=== PATIENT | male | born 1950 | race Caucasian/White ===

== ENCOUNTER 2020-05-06 01:34 | Emergency (ER) | payer MEDICARE, OTHER ==
[2014-08-21 01:05] VITALS: BP 152/94
[~2020-05-06] VITALS: Ht 188 cm; Wt 100.0 kg
[~2020-05-06 01:34] MED LIST: HYDR-2155 PO
--- NOTE | 2020-05-06 02:26 | PHYS DOC ---
Past History Past Medical History: High Cholesterol, Heart Disease, Other Past Surgical History: Other Alcohol Use: Occasionally Drug Use: None Adult General Chief Complaint Chief Complaint: FLANK PAIN HPI HPI Patient is a 69-year-old male with a past medical history significant for CAD and hypercholesterolemia who presents to the emergency department with a chief complaint of right-sided flank pain. States this morning he was shoveling snow and was not experiencing any pain. Stated that several hours later he began to have pain in his right lower flank which slightly radiates down right lower abdomen, sharp in nature, 6 out of 10 and relatively constant. States he is never really had anything like this before states he does have mild chronic low back pain but this feels different. Denies any recent traumas, illnesses, fevers, chest pain, shortness of breath, abdominal pain, nausea, vomiting, dysuria, hematuria or blood in the stool. Denies any numbness /weakness/tingling. Denies any urinary retention or incontinence. Denies any history of cigarette smoking. Denies any recent travel or known ill contacts. States he is otherwise eating and drinking normally. States he is making urine and stool normally for him. Review of Systems Review of Systems Review of systems otherwise unremarkable except for noted in HPI Allergies Allergies Allergies Coded Allergies Type Severity Reaction Last Updated Verified No Known Drug Allergies 08/21/14 No Physical Exam Physical Exam Constitutional: Well developed, well nourished, no acute distress, non-toxic appearance. [] HENT: Normocephalic, atraumatic, oropharynx moist, no oral exudates Eyes: conjunctiva normal, no discharge. [] Neck: Normal range of motion, no tenderness Cardiovascular:Heart rate regular rhythm, no murmur [] Lungs & Thorax: Bilateral breath sounds clear to auscultation [] Abdomen: Bowel sounds normal, soft, patient with tenderness on palpation of the right flank/CVA, no masses, no pulsatile masses, no guarding or rebound, no McBurney's, no Pratt's. [] Skin: Warm, dry, no erythema, no rash. [] Back: No tenderness[] Extremities: No tenderness, no cyanosis, no clubbing, ROM intact, no edema. [] Neurologic: Alert and oriented X 3, normal motor function, normal sensory function, no focal deficits noted. [] Psychologic: Affect normal, judgement normal, mood normal. [] Current Patient Data Vital Signs Vital Signs Date Time Temp Pulse Resp B/P (MAP) Pulse Ox O2 Delivery O2 Flow Rate FiO2 05/06/20 01:57 60 18 119/73 (88) 97 Room Air 05/06/20 01:34 97.9 EKG EKG EKG with a rate of 64, QRS of 86, QTC of 392, no STEMI [] Radiology/Procedures Radiology/Procedures []IMPRESSION: 1. Urinary bladder is mostly decompressed. The wall is thickened and ill- defined. Considerations include cystitis or chronic bladder outlet obstruction. Suggest correlation with urinalysis. 2. No obstructive uropathy. Electronically signed by: Rico Riley MD (05/06/2020 2:52 AM) [facility] IMPRESSION: No acute cardiopulmonary process. Electronically signed by: Rico Riley MD (05/06/2020 2:56 AM) [facility] Heart Score Risk Factors: Risk Factors: DM, Current or recent (<one month) smoker, HTN, HLP, family history of CAD, obesity. Risk Scores: Risk Factors: DM, Current or recent (<one month) smoker, HTN, HLP, family history of CAD, obesity. Course & Med Decision Making Course & Med Decision Making Patient is a 69-year-old male who presents with a chief complaint of right-sided flank pain for about a half a day Vital signs not concerning. Physical exam noted above. Patient given Tylenol and Percocet for pain control. No need for nausea control. EKG not concerning. Troponin normal. Imaging remarkable for thickened urinary bladder wall suggestive of cystitis or chronic bladder outlet obstruction, however prostate is normal size and patient is urinating. Laboratory analysis notable for elevated creatinine to 1.5. Urinalysis completely normal. On reassessment patient stated that fluid and pain medicine did help. Offered patient admission for continued fluid hydration for mildly elevated creatinine. Patient stated that he would just go home make sure to drink plenty of fluids and follow-up with his doctor for same today. Advised to call his primary care physician first thing in the morning to update on ED visit, mildly elevated creatinine and request a follow-up appointment for repeat urinalysis and labs. Discussed differential diagnosis with patient i ncluding but not limited to some type of obstruction not seen that need to be evaluated by urologist or possibly a small kidney stone that passed causing him discomfort. Advised that he needed to do this as soon as possible to avoid any further possible kidney injury. Advised to come back to the emergency department immediately with any new or concerning symptoms. [] Flaquita Disclaimer Flaquita Disclaimer This electronic medical record was generated, in whole or in part, using a voice recognition dictation system. Departure Departure: Impression: Primary Impression: Flank pain Additional Impression: Elevated serum creatinine Disposition: HOME SELF CARE/HOMELESS Referrals: SHANNA EVANS (PCP) Patient Instructions: Acute Kidney Injury Additional Instructions: Please read all the attached information. Please make sure to stay well- hydrated and eat normally. Please refrain from taking any aspirin/ibuprofen/Motrin or Advil and try to only take Tylenol and your prescription pain medicine as needed for pain control. Please do not exceed 30 00 mg of Tylenol daily. He can also use ice as needed. The most important thing is to call your primary care physician first thing this morning to discuss your ED visit your mildly elevated creatinine at 1.5 and your urinary bladder with thickened fofana. However your prostate was normal in size on your CT. Discussed the need for further treatment, evaluation or possibly outpatient follow-up with urology. Please come back to the emergency department immediately with any new or concerning symptoms. Scripts Oxycodone HCl/Acetaminophen (Percocet 5-325 mg Tablet) 1 Each Tablet 1 TAB PO PRN BID PRN for flank pain MDD 2 Tablet(s) for 5 Days, #10 TAB 0 Refills Prov: TERELL BLACK MD 05/06/20 Problem Qualifiers TERELL BLACK MD May 06, 2020 02:26
[2020-05-06 02:41] LABS: BASO # 0.1 x10^3/uL (0.0-0.2); BASO % 1 % (0-3); EOS # 0.2 x10^3/uL (0.0-0.7); EOS % 2 % (0-3); HEMOGLOBIN 17.1 g/dL (13.0-17.5); LYMPH # 2.7 x10^3/uL (1.0-4.8); LYMPH % 24 % (24-48); MEAN CORPUSCULAR HEMOGLOBIN 31 pg (25-35); MEAN CORPUSCULAR HGB CONC 34 g/dL (31-37); MEAN CORPUSCULAR VOLUME 91 fL (79-100); MONO # 0.9 x10^3/uL (0.0-1.1); MONO % 8 % (0-9); NEUT # 7.2 x10^3uL (1.8-7.7); NEUT % 65 % (31-73); PLATELET COUNT 182 x10^3/uL (140-400); RED BLOOD COUNT 5.52 x10^6/uL (4.30-5.70); RED CELL DISTRIBUTION WIDTH 12.8 % (11.5-14.5); WHITE BLOOD COUNT 11.1 x10^3/uL (4.0-11.0)
--- NOTE | 2020-05-06 02:52 | EKG ---
[address] [address] Test Date: 2020-05-06 Test Time: 02:45:08 Pat Name: LORENZO PAREDES Department: Room: Gender: M Sales Support Consultant: Kvng : [id number] Requested By: TERELL BLACK Order Number: [id number] Reading MD: Measurements Intervals [place] Rate: 64 P: 0 AL: 164 QRS: 28 QRSD: 86 T: 33 QT: 380 QTc: 392 Interpretive Statements SINUS RHYTHM NORMAL ECG RI6.02 No previous ECG available for comparison
[2020-05-06 02:53] LABS: CALCIUM 9.1 mg/dL (8.5-10.1); CREATININE 1.5 mg/dL (0.7-1.3); GFR 46.5; POTASSIUM 4.3 mmol/L (3.5-5.1)
--- NOTE | 2020-05-06 02:55 | RAD ---
PQRS Compliance Statement: One or more of the following individualized dose reduction techniques were utilized for this examinat ion: 1. Automated exposure control 2. Adjustment of the mA and/or kV according to patient size 3. Use of iterative reconstruction technique CT ABDOMEN+PELVIS WO Clinical Indication: Reason: right sided flank pain Comparison: None. Technique: Helical CT imaging of the abdomen and pelvis is performed without IV or oral contrast. Findings: Evaluation of solid organs and bowel is limited without oral and IV contrast, decreasing sensitivity for detection of pathology. Lung bases are clear. There is respiratory motion artifact. The cardiac size is normal. The liver, gallbladder, spleen, pancreas, adrenal glands, and abdominal aorta are normal. There is no renal, ureteral, or bladder calculus. There is no hydronephrosis. No obvious abnormality of the stomach. There is no dilated small bowel. The appendix is normal. There is no colon wall thickening. Scattered stool in the colon. No abdominal adenopathy or free fluid. The urinary bladder is mostly decompressed, the wall is thickened and ill-defined. Prostate and semin al vesicles are normal. No pelvic free fluid. There is disc space narrowing and endplate spurring and reactive sclerosis of L5/S1. Schmorl's node s uperior endplate of L1 and inferior endplate of L2. IMPRESSION: 1. Urinary bladder is mostly decompressed. The wall is thickened and ill-defined. Considerations inc lude cystitis or chronic bladder outlet obstruction. Suggest correlation with urinalysis. 2. No obstructive uropathy. Electronically signed by: Rico Riley MD (05/06/2020 2:52 AM) [facility]
--- NOTE | 2020-05-06 02:58 | RAD ---
XR CHEST 2V History: Reason: right sided rib/flank pain / Comparison: Two-view chest, August 10, 2011. Findings: The cardiomediastinal silhouette is normal. Pulmonary vasculature is normal. The lungs are clear. No pleural effusion or pneumothorax is seen. There is no acute bone abnormality. IMPRESSION: No acute cardiopulmonary process. Electronically signed by: Rico Riley MD (05/06/2020 2:56 AM) [facility] HOSPITALDerian
[2020-05-06] MEDS ORDERED: ACETAMINOPHEN 325 MG TABLET PO ONE (03:00)
[2020-05-06 03:15] LABS: BACTERIA,URINE 0 /HPF (0-FEW); BILIRUBIN,URINE NEG (NEG); CLARITY,URINE CLEAR; COLOR,URINE YELLOW; GLUCOSE,URINE NEG (NEG); NITRITE,URINE NEG (NEG); RBC,URINE 0 /HPF (0-2); SQUAMOUS EPITHELIAL CELL,UR OCC /LPF; UROBILINOGEN,URINE 0.2 mg/dL (0.2 mg/dL); WBC,URINE 0 /HPF (0-4)
[2020-05-06] MEDS ORDERED: OXYC-325 PO (03:28)
[2020-05-06] MEDS ORDERED: IV RINGERS SOLUTION,LACTATED 1,000 ML IV ONE (03:30)
== END 2020-05-06 03:38 | disposition home or self-care (01) ==
LOC: ER 01:34
DX: R10.31 Right lower quadrant pain (principal); R79.89 Other specified abnormal findings of blood chemistry; G89.29 Other chronic pain; M54.5 Low back pain; E78.00 Pure hypercholesterolemia, unspecified; I25.10 Atherosclerotic heart disease of native coronary artery without angina pectoris
CPT/HCPCS: 36415; 71046; 74176; 80048; 81001; 84484; 85025; 93005; 99285; J7120

== ENCOUNTER 2021-01-05 01:04 | Emergency (ER) | payer MEDICARE, OTHER ==
[~2021-01-05] VITALS: Ht 188 cm; Wt 63.1 kg
[~2021-01-05 01:04] MED LIST changes: +OXYC-325 PO
--- NOTE | 2021-01-05 01:31 | PHYS DOC ---
Past History Past Medical History: High Cholesterol, Heart Disease, Other Past Surgical History: No Surgical History Alcohol Use: Occasionally Drug Use: None Adult General HPI HPI Patient is a 70-year-old male who presents with a chief complaint of acute onset flank pain, 7 out of 10, sharp in nature with no radiation, that started a few hours ago who has a history of renal stones. Also endorses some nausea but no vomiting. Denies any recent traumas, travels, illnesses, fevers, chest pain, shortness of breath, dysuria, hematuria, blood in the stool or diarrhea. Review of Systems Review of Systems Constitutional: Denies fever or chills [] Eyes: Denies change in visual acuity, redness, or eye pain [] HENT: Denies nasal congestion or sore throat [] Respiratory: Denies cough or shortness of breath [] Cardiovascular: No additional information not addressed in HPI [] GI: Denies abdominal pain, nausea, vomiting, bloody stools or diarrhea [] : Denies dysuria or hematuria [] Musculoskeletal: Denies back pain or joint pain [] Integument: Denies rash or skin lesions [] Neurologic: Denies headache, focal weakness or sensory changes [] Endocrine: Denies polyuria or polydipsia [] All other systems were reviewed and found to be within normal limits, except as documented in this note. Allergies Allergies Allergies Coded Allergies Type Severity Reaction Last Updated Verified No Known Drug Allergies 08/21/14 No Physical Exam Physical Exam Constitutional: Well developed, well nourished, no acute distress, non-toxic appearance. [] HENT: Normocephalic, atraumatic, Eyes: conjunctiva normal, no discharge. [] Neck: Normal range of motion, no tenderness, supple, no stridor. [] Cardiovascular:Heart rate regular rhythm, no murmur [] Lungs & Thorax: Bilateral breath sounds clear to auscultation [] Abdomen: soft, no tenderness, no masses, no pulsatile masses. [] Skin: Warm, dry, no erythema, no rash. [] Back: no CVA tenderness. [] Extremities: No tenderness, no cyanosis, no clubbing, ROM intact, no edema. [] Neurologic: Alert and oriented X 3,no focal deficits noted. [] Psychologic: Affect normal, judgement normal, mood normal. [] EKG EKG [] Radiology/Procedures Radiology/Procedures [] TECHNIQUE: Helical CT of the abdomen and pelvis without intravenous contrast. Axial, coronal and sagittal reformatted images were generated. PQRS compliance statement - One or more of the following individualized dose reduction techniques were utilized for this study: 1. Automated exposure control 2. Adjustment of the mA and/or kV according to patient size 3. Use of iterative reconstruction technique FINDINGS: Lack of intravenous contrast limits evaluation of solid organs, vasculature, and lymph nodes. Lower chest: Lung bases are clear. Abdomen and Pelvis: No focal liver lesion. Gallbladder is normal. Spleen is unremarkable. Pancreas is normal. Adrenal glands are normal. No focal renal lesion. No hydronephrosis. No hydroureter. Infiltration seen about the bladder. Aorta is normal in caliber with atherosclerotic calcifications. Moderate colonic stool content is seen. Appendix is normal. No small or large bowel dilatation. No bowel obstruction. Trace fat-containing periumbilical hernia. No abdominal or pelvic ascites. No abdominal or pelvic lymphadenopathy. Bones: No aggressive osseous lesion is seen. Degenerative changes L5-S1. IMPRESSION: 1. Diffuse bladder wall thickening likely cystitis and can be correlated with urinalysis. 2. Moderate colonic stool content is seen. No bowel obstruction. Electronically signed by: Reg Aquino MD (01/05/2021 2:00 AM) [facility] Heart Score C/O Chest Pain: No Risk Factors: Risk Factors: DM, Current or recent (<one month) smoker, HTN, HLP, family history of CAD, obesity. Risk Scores: Risk Factors: DM, Current or recent (<one month) smoker, HTN, HLP, family history of CAD, obesity. Course & Med Decision Making Course & Med Decision Making Patient is a 70-year-old male who presents with flank pain Vital signs not concerning. Physical exam noted above. Given Zofran and Toradol. Laboratory analysis not concerning. CT notable for bladder wall thickening but urine analysis not suggestive of urinary tract infection. Discussed all findings with patient. Advised to follow-up in the morning with primary care physician to discuss need for further evaluation and treatment. Advised to stay fully hydrated. Gave return precautions to the ED. Patient grateful, verbalized understanding and agreed with plan of discharge. Dragon Disclaimer Dragon Disclaimer This electronic medical record was generated, in whole or in part, using a voice recognition dictation system. Departure Departure: Impression: Primary Impression: Flank pain Disposition: HOME / SELF CARE / HOMELESS Condition: GOOD Referrals: SHANNA EVANS (PCP) Patient Instructions: Flank Pain Additional Instructions: Thank you for coming into the emergency department tonight and allowing us to take care of you. Please read the attached information carefully to go over things we discussed. Your laboratory analysis and urinalysis were not concerning. Your CT was essentially unremarkable except some wall thickening of your bladder which could be caused by many things and should be reevaluated by your primary care physician. Please be sure to stay well-hydrated. If you use any tobacco products please stop. Please call your primary care physician first thing in the morning to discuss ED visit and set up a follow-up as soon as possible to discuss need for further evaluation and treatment. Please come back to the ED with new or concerning symptoms as discussed. TERELL BLACK MD Jan 05, 2021 01:31
[2021-01-05] MEDS ORDERED: KETOROLAC 15 MG/ML VIAL. IVP ONE (02:00)
[2021-01-05] MEDS ORDERED: ONDANSETRON PF 4 MG/2 ML VIAL. IVP ONE (02:00)
--- NOTE | 2021-01-05 02:03 | RAD ---
EXAM: CT Abdomen and Pelvis without IV contrast CLINICAL HISTORY: Reason: Severe right flank pain and abdomen pain / Spl. Instructions: / History: . COMPARISON: 05/06/2020 TECHNIQUE: Helical CT of the abdomen and pelvis without intravenous contrast. Axial, coronal and sagi ttal reformatted images were generated. PQRS compliance statement - One or more of the following individualized dose reduction techniques wer e utilized for this study: 1. Automated exposure control 2. Adjustment of the mA and/or kV according to patient size 3. Use of iterative reconstruction technique FINDINGS: Lack of intravenous contrast limits evaluation of solid organs, vasculature, and lymph nodes. Lower chest: Lung bases are clear. Abdomen and Pelvis: No focal liver lesion. Gallbladder is normal. Spleen is unremarkable. Pancreas is normal. Adrenal gla nds are normal. No focal renal lesion. No hydronephrosis. No hydroureter. Infiltration seen about the bladder. Aorta is normal in caliber with atherosclerotic calcifications. Moderate colonic stool content is seen. Appendix is normal. No small or large bowel dilatation. No yasmin wel obstruction. Trace fat-containing periumbilical hernia. No abdominal or pelvic ascites. No abdominal or pelvic lym phadenopathy. Bones: No aggressive osseous lesion is seen. Degenerative changes L5-S1. IMPRESSION: 1. Diffuse bladder wall thickening likely cystitis and can be correlated with urinalysis. 2. Moderate colonic stool content is seen. No bowel obstruction. Electronically signed by: Reg Aquino MD (01/05/2021 2:00 AM) [facility]
[2021-01-05 03:22] LABS: CALCIUM 9.3 mg/dL (8.5-10.1); CREATININE 1.2 mg/dL (0.7-1.3); POTASSIUM 4.2 mmol/L (3.5-5.1)
[2021-01-05 03:26] LABS: BILIRUBIN,URINE NEG (NEG); CLARITY,URINE CLEAR; COLOR,URINE YELLOW; GLUCOSE,URINE NEG (NEG); NITRITE,URINE NEG (NEG); UROBILINOGEN,URINE 0.2 mg/dL (0.2 mg/dL)
[2021-01-05 03:28] LABS: BACTERIA,URINE 0 /HPF (0-FEW); RBC,URINE 0 /HPF (0-2); WBC,URINE RARE /HPF (0-4)
[2021-01-05 03:45] VITALS: BP 140/84
== END 2021-01-05 03:47 | disposition home or self-care (01) ==
LOC: ER 01:04
DX: R10.9 Unspecified abdominal pain (principal); R11.0 Nausea; E78.00 Pure hypercholesterolemia, unspecified
CPT/HCPCS: 36415; 74176; 80048; 81001; 96374; 96375; 99284; J1885; J2405